=== PATIENT | female | born 1985 | race Caucasian/White ===

== ENCOUNTER → 2022-05-30 12:54 | Outpatient (CLI) | payer MEDICAID, SELFPAY ==
--- NOTE | 2022-05-30 12:55 | US_ITS ---
FINAL REPORT TECHNIQUE: Sonographic images of the pelvis were obtained. CLINICAL HISTORY: for dates COMPARISON: None FINDINGS: A gestational sac is present in the uterus. Mean sac diameter is 9 mm corresponding with 5 weeks 4 days gestational age. Yolk sac measures 3 mm. No pole is identified. No heartbeat is identified. There is a left ovarian cyst measuring 2.5 cm. There is a 1.3 cm right ovarian cyst. There is normal blood flow to the ovaries. There is a small amount of free fluid. IMPRESSION: Gestational sac in the uterus measuring approximately 5 weeks 4 days. No pole identified. Recommend follow-up ultrasound. Bilateral ovarian cysts. Moderate amount of free fluid, nonspecific. Reviewed, Interpreted and Dictated by Gerard Cash III, MD Transcribed by Jeimy Whitmore Authenticated and [facility]
[2022-05-30 15:16] LABS: HCG,Quantitative 9161 mIU/ml (0-5.42)
[2022-06-01 08:20] LABS: Progesterone 21.6 ng/mL (.)
== END ==
PROVIDERS: PCP Emergency Medicine; Visit Provider Nurse Practitioner Obstetrics & Gynecology
DX: Z34.90 Encounter for supervision of normal pregnancy, unspecified, unspecified trimester (principal); N92.6 Irregular menstruation, unspecified
CPT/HCPCS: 36415; 76801; 84144; 84702

== ENCOUNTER → 2022-06-02 08:14 | Outpatient (CLI) | payer MEDICAID, SELFPAY ==
[2022-06-02 10:43] LABS: HCG,Quantitative 16490 mIU/ml (0-5.42)
== END ==
PROVIDERS: PCP Emergency Medicine; Visit Provider Nurse Practitioner Obstetrics & Gynecology
DX: N92.6 Irregular menstruation, unspecified (principal); Z32.00 Encounter for pregnancy test, result unknown
CPT/HCPCS: 36415; 84702

== ENCOUNTER → 2022-06-19 14:19 | Outpatient (CLI) | payer MEDICAID, SELFPAY ==
[2022-06-19 15:37] LABS: Basophils # 0.1 K/mm3 (0-0.2); Basophils % 0.6 % (0.1-2.0); Eosinophils # 0.1 K/mm3 (0.0-0.4); Eosinophils % 0.9 % (0.1-12.0); Hematocrit 43.4 % (37.0-47.0); Hemoglobin 13.7 g/dL (12.2-16.2); Lymphocytes # 1.9 K/mm3 (0.7-4.5); Lymphocytes % 20.7 % (10-50); Mean Corpuscular HGB Conc 31.6 g/dL (31.8-35.4); Mean Corpuscular Hemoglobin 31.5 pg (27.0-31.2); Mean Corpuscular Volume 99.9 fl (81-99); Mean Platelet Volume 7.8 fl (7.4-10.4); Monocytes # 0.4 K/mm3 (0.1-1.0); Monocytes % 4.8 % (1.7-9.3); Neutrophils # 6.8 K/mm3 (1.8-7.8); Platelet Count 328 K/mm3 (142-424); Red Blood Count 4.35 M/mm3 (4.20-5.40); White Blood Count 9.3 K/mm3 (4.8-10.8)
[2022-06-21 07:22] LABS: Rubella Antibodies, IgG 7.79 index (Immune >0.99)
[2022-06-21 15:01] LABS: Rapid Plasma Reagin Ab Titer Non Reactive (NonRea<1:1)
[2022-06-25 03:56] LABS: HIV Screen 4th Generation wRfx NON REACTIVE; Hepatitis B Surface Antigen NEGATIVE; Hepatitis C Antibody NON REACTIVE
== END ==
PROVIDERS: PCP Emergency Medicine; Visit Provider Nurse Practitioner Obstetrics & Gynecology
DX: Z34.90 Encounter for supervision of normal pregnancy, unspecified, unspecified trimester (principal)
CPT/HCPCS: 36415; 85025; 86593; 86703; 86762; 86850; 87340; 87380; G0432

== ENCOUNTER → 2022-09-24 16:41 | Outpatient (CLI) | payer MEDICAID, SELFPAY ==
[2022-09-24 17:26] LABS: Collection Time,Urine 24 hours; Total Volume,Urine 1200 mL (600-1600)
[2022-09-24 17:28] LABS: Patient Weight,Urine 185 lbs
[2022-09-24 18:18] LABS: Creatinine 24 Hour,Urine 1224 mg/24hr (630-2500); Creatinine,Urine Random 102 mg/dL (Not Estab.); Total Protein 24 Hour,Urine 120 mg/24 hr (40-90)
== END ==
PROVIDERS: PCP Emergency Medicine; Visit Provider Nurse Practitioner Obstetrics & Gynecology
DX: I10 Essential (primary) hypertension (principal)
CPT/HCPCS: 82575; 84155

== ENCOUNTER 2022-10-22 07:46 | Outpatient (CLI) | payer MEDICAID, SELFPAY ==
[2022-10-22 08:19] LABS: Basophils % 0.5 % (0.1-2.0); Eosinophils # 0.2 K/mm3 (0.0-0.4); Eosinophils % 2.8 % (0.1-12.0); Hematocrit 30.5 % (37.0-47.0); Hemoglobin 9.8 g/dL (12.2-16.2); Lymphocytes # 1.4 K/mm3 (0.7-4.5); Lymphocytes % 21.7 % (10-50); Mean Corpuscular HGB Conc 32.1 g/dL (31.8-35.4); Mean Corpuscular Hemoglobin 31.1 pg (27.0-31.2); Mean Corpuscular Volume 96.8 fl (81-99); Mean Platelet Volume 7.7 fl (7.4-10.4); Monocytes # 0.3 K/mm3 (0.1-1.0); Monocytes % 5.1 % (1.7-9.3); Neutrophils # 4.4 K/mm3 (1.8-7.8); Neutrophils % 69.9 % (37.0-80.0); Platelet Count 229 K/mm3 (142-424); Red Blood Count 3.15 M/mm3 (4.20-5.40); Red Cell Distribution Width 12.6 % (11.5-17.5); White Blood Count 6.2 K/mm3 (4.8-10.8)
[2022-10-22 08:36] LABS: Glucose,Fasting 72 mg/dl (74-100)
[2022-10-22 10:30] LABS: Glucose 1 Hour 97 mg/dL (74-100)
[2022-10-22 11:45] VITALS: BP 146/76; PULSE 84; RESP 18; O2SAT 99
== END 2022-10-22 11:50 | disposition home or self-care (01) ==
PROVIDERS: PCP Emergency Medicine; Visit Provider Nurse Practitioner Obstetrics & Gynecology
DX: O26.892 Other specified pregnancy related conditions, second trimester (principal); Z67.91 Unspecified blood type, Rh negative; Z3A.26 26 weeks gestation of pregnancy
CPT/HCPCS: 36415; 82951; 85025; 96372; J2790

== ENCOUNTER → 2022-12-16 09:45 | Outpatient (CLI) | payer MEDICAID, SELFPAY ==
--- NOTE | 2022-12-16 09:45 | US_ITS ---
PROCEDURE: US OB BIOPHYSICAL PROFILE CLINICAL INDICATION: chronic hypertension COMPARISON: FINDINGS: Transabdominal sonographic images of the uterus were obtained. From her established due date she is 34weeks 1day. The following parameters are obtained: Viable fetus in the cephalic presentation with an anterior placenta grade 2. Cervix measures 2.8 cm. heart rate: 149bpm bpm. Amniotic fluid index: 13.15cm Qualitative AFV: 2 breathing movements: 2 Gross body movements: 2 Tone: 2 Biophysical profile score: 8 No obvious anomalies evident.Kidneys, bladder, stomach, profile, four-chamber view, LVOT, three-vessel cord appear normal. IMPRESSION: 1. Viable fetus in the cephalic presentation with an anterior placenta grade 2. 2. The fluid is within normal limits with an amniotic fluid index of 13.15 cm. 3. Biophysical profile /8 with good breathing movement seen. Dictated by: Chema Fernándze MD 12/17/2022 09:52 Chema Fernández MD in OV 12/17/2022 09:52
== END ==
PROVIDERS: PCP Emergency Medicine; Visit Provider Obstetrics & Gynecology
DX: O10.913 Unspecified pre-existing hypertension complicating pregnancy, third trimester (principal); Z3A.34 34 weeks gestation of pregnancy
CPT/HCPCS: 76819

== ENCOUNTER 2022-12-19 13:50 | Outpatient (CLI) | payer MEDICAID, SELFPAY ==
[2022-12-19 14:06] VITALS: BP 129/78; PULSE 75; RESP 18; TEMP 36.7; O2SAT 99; BMI 31.9
== END 2022-12-19 14:25 | disposition home or self-care (01) ==
LOC: OBOUT 13:52 → OB 13:54
PROVIDERS: PCP Emergency Medicine; Visit Provider Nurse Practitioner Obstetrics & Gynecology
DX: Z34.93 Encounter for supervision of normal pregnancy, unspecified, third trimester (principal); Z3A.34 34 weeks gestation of pregnancy
CPT/HCPCS: 59025; G0463

== ENCOUNTER 2022-12-23 14:11 | Outpatient (CLI) | payer OTHER, SELFPAY ==
[2022-12-23 14:35] VITALS: BP 147/83; PULSE 73; RESP 18; O2SAT 99
== END 2022-12-23 14:50 | disposition home or self-care (01) ==
LOC: INF 14:12
PROVIDERS: PCP Emergency Medicine; Visit Provider Obstetrics & Gynecology
DX: O10.919 Unspecified pre-existing hypertension complicating pregnancy, unspecified trimester (principal); E86.0 Dehydration
CPT/HCPCS: 96372

== ENCOUNTER 2022-12-24 13:54 | Outpatient (CLI) | payer OTHER, SELFPAY ==
[2022-12-24 14:31] VITALS: BP 143/71; PULSE 76; RESP 18; O2SAT 99
== END 2022-12-24 14:38 | disposition home or self-care (01) ==
LOC: INF 13:55
PROVIDERS: PCP Emergency Medicine; Visit Provider Obstetrics & Gynecology
DX: O10.919 Unspecified pre-existing hypertension complicating pregnancy, unspecified trimester (principal); Z3A.35 35 weeks gestation of pregnancy
CPT/HCPCS: 96372

== ENCOUNTER → 2022-12-26 16:03 | Outpatient (CLI) | payer OTHER, SELFPAY ==
[2022-12-26 16:51] LABS: Basophils % 0.2 % (0.1-2.0); Eosinophils % 0.3 % (0.1-12.0); Hematocrit 33.8 % (37.0-47.0); Lymphocytes # 1.6 K/mm3 (0.7-4.5); Lymphocytes % 16.4 % (10-50); Mean Corpuscular HGB Conc 32.5 g/dL (31.8-35.4); Mean Corpuscular Volume 95.4 fl (81-99); Mean Platelet Volume 7.9 fl (7.4-10.4); Monocytes # 0.6 K/mm3 (0.1-1.0); Monocytes % 5.9 % (1.7-9.3); Neutrophils # 7.7 K/mm3 (1.8-7.8); Neutrophils % 77.2 % (37.0-80.0); Platelet Count 271 K/mm3 (142-424); Red Blood Count 3.55 M/mm3 (4.20-5.40); Red Cell Distribution Width 12.9 % (11.5-17.5)
[2022-12-26 17:12] LABS: Total Volume,Urine 950 mL (600-1600)
[2022-12-26 17:45] LABS: Alanine Aminotransferase 22 U/L (12-78); Albumin Level 3.8 g/dl (3.5-5.0); Albumin/Globulin Ratio 1.3 (1.1-1.8); Alkaline Phosphatase 127 U/L (38-126); Anion Gap 9.4 mEq/L (5-15); Aspartate Amino Transferase 27 U/L (14-36); Bilirubin,Total 0.2 mg/dl (0.2-1.3); Blood Urea Nitrogen 17 mg/dl (7-17); Calcium 8.9 mg/dl (8.4-10.2); Carbon Dioxide 26 mmol/L (22.0-30.0); Chloride 105 mmol/L (98-107); Estimated Glomerular Filt Rate 94 ml/min (>60); GFR (African American) 113 ML/MIN (>60); Globulin 2.9 g/dL (1.3-3.2); Glucose 83 mg/dl (74-100); Lactate Dehydrogenase 233 U/L (313-618); Potassium 4.4 mmoL/L (3.5-5.1); Sodium 136 mmol/L (136-145); Total Protein,Serum 6.7 g/dl (6.3-8.2); Uric Acid 4.8 mg/dl (2.5-6.2)
[2022-12-26 18:15] LABS: Total Protein 24 Hour,Urine 162 mg/24 hr (40-90)
== END ==
PROVIDERS: PCP Emergency Medicine; Visit Provider Obstetrics & Gynecology
DX: O10.919 Unspecified pre-existing hypertension complicating pregnancy, unspecified trimester (principal); Z3A.35 35 weeks gestation of pregnancy
CPT/HCPCS: 36415; 80053; 83615; 84155; 84550; 85025

== ENCOUNTER → 2022-12-30 07:29 | Outpatient (CLI) | payer OTHER, MEDICAID, SELFPAY | PROVIDERS: PCP Emergency Medicine; Visit Provider Obstetrics & Gynecology | DX: Z34.90 Encounter for supervision of normal pregnancy, unspecified, unspecified trimester (principal) ==

== ENCOUNTER → 2023-01-01 10:29 | Outpatient (CLI) | payer OTHER, SELFPAY ==
--- NOTE | 2023-01-01 10:35 | US_ITS ---
PROCEDURE: US OB BIOPHYSICAL PROFILE CLINICAL INDICATION: FELA,Chronic hypertension, IUGR COMPARISON: FINDINGS: Transabdominal sonographic images of the uterus were obtained. From her established due date she is 36weeks 3days. The following parameters are obtained: Viable fetus in the cephalic presentation with an anterior placenta grade 2 Average ultrasound age is 35weeks 1day. Estimated due date by ultrasound is 02/04/2023. Estimated weight is 5lb 2oz, 2352 grams. Cervix measures 2.8 cm in length. heart rate: 138bpm bpm. BPD: 37weeks 6days OFD: 37weeks 6days HC: 37 weeks 4 days AC: 33 weeks 6 FL: 33 weeks 2 days HC/AC: 1.11 Cephalic index: 0.77 FL/BPD: 0.73 FL/AC: 0.22 7 percentile Amniotic fluid index: 10.46cm Qualitative AFV: 2 breathing movements: 2 Gross body movements: 2 Tone: 2 Biophysical profile score: 8 No obvious anomalies evident.Kidneys, profile, nasion, four-chamber heart, three-vessel cord appear normal. IMPRESSION: 1. Viable fetus in the cephalic presentation with an anterior placenta grade 2. 2. The fluid is within normal limits with an amniotic fluid index of 10.5 cm. 3. The abdominal circumference is over 2 weeks behind. growth is 7th percentile. 4. Biophysical profile is 8/8 with good breathing movement and movement seen. Dictated by: Chema Fernández MD 01/01/2023 14:47 Chema Fernández MD in OV 01/01/2023 14:47
== END ==
PROVIDERS: Visit Provider Obstetrics & Gynecology
DX: O36.5130 Maternal care for known or suspected placental insufficiency, third trimester, not applicable or unspecified (principal); O10.919 Unspecified pre-existing hypertension complicating pregnancy, unspecified trimester; O28.8 Other abnormal findings on antenatal screening of mother; Z3A.36 36 weeks gestation of pregnancy
CPT/HCPCS: 59025; 76816; 76819; 80053; 80076; 80305; 81001; 82043; 82570; 84550; 85025; 85378; 85384; 85610; 85730; 86403; G0463

== ENCOUNTER 2023-01-01 14:19 | Outpatient (CLI) | payer OTHER, MEDICAID, SELFPAY ==
[2023-01-01 14:30] VITALS: BMI 25.5; BMI 30.7
[2023-01-01 14:35] VITALS: BP 143/78; PULSE 72; RESP 18; TEMP 36.7; O2SAT 99
[2023-01-01 14:50] VITALS: BP 151/86
[2023-01-01 15:04] LABS: Microscopic, Urine URINE MICROSCOPIC (MICROSCOPIC)
[2023-01-01 15:10] VITALS: BP 131/69; PULSE 65
[2023-01-01 15:11] LABS: Appearance,Urine CLEAR (Clear); Bilirubin,Urine Negative (Negative); Blood, Urine TRACE-I (Negative); Color,Urine YELLOW (Yellow); Glucose,Urine (UA) Negative (Negative); Ketones,Urine Negative (Negative); Leukocyte Esterase,Urine Negative (Negative); Nitrate,Urine Negative (Negative); Protein,Urine Negative (Negative); Specific Gravity, Urine 1.025 (1.005-1.030); Urobilinogen,Urine 0.2 EU/dl (0.2)
[2023-01-01 15:13] LABS: Alanine Aminotransferase 25 U/L (12-78); Albumin Level 3.7 g/dl (3.5-5.0); Albumin/Globulin Ratio 1.2 (1.1-1.8); Alkaline Phosphatase 130 U/L (38-126); Anion Gap 8.8 mEq/L (5-15); Aspartate Amino Transferase 31 U/L (14-36); Bilirubin,Direct 0.1 mg/dl (0.0-0.4); Bilirubin,Indirect 0.1 mg/dL (0.0-0.9); Bilirubin,Total 0.2 mg/dl (0.2-1.3); Bilirubin,Unconjugated 0.1 mg/dL (0.0-1.1); Blood Urea Nitrogen 13 mg/dl (7-17); Carbon Dioxide 24 mmol/L (22.0-30.0); Chloride 104 mmol/L (98-107); Creatinine Clearance Estimated 140 mL/min (50-200); Estimated Glomerular Filt Rate 94 ml/min (>60); GFR (African American) 113 ML/MIN (>60); Globulin 3.1 g/dL (1.3-3.2); Glucose 85 mg/dl (74-100); Potassium 3.8 mmoL/L (3.5-5.1); Sodium 133 mmol/L (136-145); Total Protein,Serum 6.8 g/dl (6.3-8.2)
[2023-01-01 15:41] VITALS: BP 138/91; PULSE 74
[2023-01-01 15:44] LABS: RBC,Urine Occasional #/hpf (0-3); Squamous Epithelial Cell,Urine Occasional #/hpf (0-5)
[2023-01-01 16:10] LABS: Basophils % 0.4 % (0.1-2.0); Eosinophils # 0.1 K/mm3 (0.0-0.4); Eosinophils % 0.7 % (0.1-12.0); Hematocrit 32.3 % (37.0-47.0); Hemoglobin 11.3 g/dL (12.2-16.2); Lymphocytes # 1.6 K/mm3 (0.7-4.5); Lymphocytes % 20.9 % (10-50); Mean Corpuscular HGB Conc 35.1 g/dL (31.8-35.4); Mean Corpuscular Hemoglobin 32.9 pg (27.0-31.2); Mean Corpuscular Volume 93.9 fl (81-99); Mean Platelet Volume 7.6 fl (7.4-10.4); Monocytes # 0.4 K/mm3 (0.1-1.0); Monocytes % 5.1 % (1.7-9.3); Neutrophils # 5.7 K/mm3 (1.8-7.8); Platelet Count 239 K/mm3 (142-424); Red Blood Count 3.44 M/mm3 (4.20-5.40); Red Cell Distribution Width 12.9 % (11.5-17.5); White Blood Count 7.7 K/mm3 (4.8-10.8)
[2023-01-01 16:14] LABS: Uric Acid 5.2 mg/dl (2.5-6.2)
[2023-01-01 16:19] LABS: Activated Partial Thrombo Time 27.7 seconds (22.8-30.6); D-Dimer 0.95 ug/mL (0.0-0.5); Fibrinogen 464 mg/dL (229.9-363.5); Prothrombin Time 9.8 seconds (10.1-12.5)
[2023-01-01 18:12] LABS: Creatinine,Urine Random 85 mg/dL (Not Estab.)
[2023-01-01 18:17] LABS: Amphetamine/Metha Screen,Urine Negative ng/ml (<1000)
[2023-01-01 18:18] LABS: Barbiturates Screen,Urine Negative ng/ml (<200); Benzodiazepines Screen,Urine Negative ng/ml (<200)
[2023-01-01 18:19] LABS: Cannabinoid Screen,Urine Negative ng/ml (<50)
[2023-01-01 18:20] LABS: Cocaine Screen,Urine Negative ng/ml (<300); Methadone Screen,Urine Negative ng/ml (<300)
[2023-01-01 18:21] LABS: Opiate Screen,Urine Negative ng/ml (<300)
[2023-01-01 18:22] LABS: Phencyclidine Screen,Urine Negative ng/ml (<25)
== END 2023-01-01 16:40 | disposition home or self-care (01) ==
LOC: LAB 14:24 → OB 14:26
PROVIDERS: Obstetrics & Gynecology; PCP Emergency Medicine; Visit Provider Obstetrics & Gynecology
DX: O26.893 Other specified pregnancy related conditions, third trimester (principal); Z3A.37 37 weeks gestation of pregnancy
CPT/HCPCS: 59025; 80053; 80076; 80305; 81001; 82043; 82570; 84550; 85025; 85378; 85384; 85610; 85730; 86403; G0463

== ENCOUNTER 2023-01-06 05:05 | Inpatient (IN) | payer OTHER, SELFPAY ==
[2023-01-06] VITALS (7 sets, daily range): BP systolic 154–173; BP diastolic 82–100; PULSE 60–88; RESP 15–19; TEMP 36.4–36.6; O2SAT 97–99; BMI 30.5
[2023-01-06 05:48] LABS: Microscopic, Urine URINE MICROSCOPIC (MICROSCOPIC)
[2023-01-06 05:51] LABS: Appearance,Urine CLEAR (Clear); Bilirubin,Urine Negative (Negative); Blood, Urine TRACE-I (Negative); Color,Urine YELLOW (Yellow); Glucose,Urine (UA) Negative (Negative); Ketones,Urine Negative (Negative); Leukocyte Esterase,Urine Negative (Negative); Nitrate,Urine Negative (Negative); Protein,Urine TRACE (Negative); Specific Gravity, Urine >= 1.030 (1.005-1.030); Urobilinogen,Urine 0.2 EU/dl (0.2)
[2023-01-06 05:52] LABS: WBC,Urine Occasional #/hpf (0-3)
[2023-01-06 05:57] LABS: Basophils % 0.4 % (0.1-2.0); Chloride 106 mmol/L (98-107); Eosinophils # 0.1 K/mm3 (0.0-0.4); Eosinophils % 0.6 % (0.1-12.0); Hematocrit 32.7 % (37.0-47.0); Hemoglobin 11.6 g/dL (12.2-16.2); Lymphocytes # 1.6 K/mm3 (0.7-4.5); Mean Corpuscular HGB Conc 35.4 g/dL (31.8-35.4); Mean Corpuscular Hemoglobin 32.8 pg (27.0-31.2); Mean Corpuscular Volume 92.6 fl (81-99); Monocytes # 0.5 K/mm3 (0.1-1.0); Monocytes % 6.5 % (1.7-9.3); Neutrophils # 5.7 K/mm3 (1.8-7.8); Neutrophils % 72.4 % (37.0-80.0); Platelet Count 222 K/mm3 (142-424); Potassium 4.1 mmoL/L (3.5-5.1); Red Blood Count 3.53 M/mm3 (4.20-5.40); Red Cell Distribution Width 13.1 % (11.5-17.5); Sodium 136 mmol/L (136-145); White Blood Count 7.9 K/mm3 (4.8-10.8)
[2023-01-06 06:00] LABS: Alanine Aminotransferase 26 U/L (12-78); Albumin Level 3.6 g/dl (3.5-5.0); Albumin/Globulin Ratio 1.2 (1.1-1.8); Alkaline Phosphatase 158 U/L (38-126); Anion Gap 11.1 mEq/L (5-15); Aspartate Amino Transferase 29 U/L (14-36); Blood Urea Nitrogen 17 mg/dl (7-17); Carbon Dioxide 23 mmol/L (22.0-30.0); Creatinine Clearance Estimated 139 mL/min (50-200); Estimated Glomerular Filt Rate 94 ml/min (>60); GFR (African American) 113 ML/MIN (>60); Globulin 3.1 g/dL (1.3-3.2); Glucose 87 mg/dl (74-100); Total Protein,Serum 6.7 g/dl (6.3-8.2)
[2023-01-06 06:01] LABS: Bilirubin,Total 0.1 mg/dl (0.2-1.3)
[2023-01-06 06:06] LABS: Amphetamine/Metha Screen,Urine Negative ng/ml (<1000); Barbiturates Screen,Urine Negative ng/ml (<200)
[2023-01-06 06:07] LABS: Cannabinoid Screen,Urine Negative ng/ml (<50)
[2023-01-06 06:08] LABS: Benzodiazepines Screen,Urine Negative ng/ml (<200); Methadone Screen,Urine Negative ng/ml (<300)
[2023-01-06 06:09] LABS: Cocaine Screen,Urine Negative ng/ml (<300)
[2023-01-06 06:10] LABS: Opiate Screen,Urine Negative ng/ml (<300); Phencyclidine Screen,Urine Negative ng/ml (<25)
--- NOTE | 2023-01-06 07:20 | EXP.ANES.CKL ---
[facility] Disclaimer: The information contained in this section may have been updated after the patient was seen, as this information can be updated by other users. Medical History Hypertension Hypothyroid Hypothyroidism affecting complicated by Suboxone maintenance, antepartum Surgical History Hx of section Hx of cholecystectomy Hx of tonsillectomy Family History Sister Cancer Breast Social History (Updated 01/06/23 @ 05:59 by Jacinta Winslow RN) Smoking Status: Current every day smoker tobacco type: cigarettes packs per day: 1 alcohol intake: never substance use type: denies use and former substance user current occupational status: employed Travel in the last 8 weeks: None do you feel safe at home: Yes victim of physical abuse: No victim of emotional abuse: No victim of sexual abuse: No [facility] Anesthesia Checklist Patient Identification Patient Identification: Verbal (Name & ) Structural Data Admitted From: Inpatient Planned Operative Procedure/s: c/section Consent for Planned Operative Procedure(s) Verified: Yes NPO Status Verified Time NPO: 00:00 Airway Assessment Mallampati Score:: Class II C-Spine Mobility Assessed: Yes TMJ Mobility Assessed: Yes Dentition: Good Dentition Neurological Assessment Level of Consciousness: Awake, Alert and Appropriate Anesthesia Plan Anesthesia Risk discussed: Yes Anesthesia Plan: Verified ASA Class: II Anesthesia Type: Spinal Preoperative Comments Pre-Operative Comments: exp tap block to pt, pt agreed to proceed
[2023-01-06 08:12] LABS: Cord Blood PH 7.31 (7.35-7.45)
--- NOTE | 2023-01-06 08:59 | EXP.HP ---
History of Present Illness *Admission Date: 01/06/23 *Reason for visit:: Repeat delivery *History of present illness: Farrukh Chatman is a 37-year-old who presents for repeat delivery at 37 weeks and 1 days gestation. Her has been complicated by chronic hypertension, a history of severe preeclampsia, hypothyroidism, Subutex use, advanced maternal age, and Rh-. On presentation she endorsed good movement, denies any contractions, vaginal bleeding, or leakage of fluid. She desires a Mirena IUD and declines a salpingectomy today. Over the last month her blood pressure has been continuing to increase despite being on 400 3 times daily of labetalol. She has been sent to labor and delivery both here and at [facility] multiple times for preeclampsia evaluation. Patient had a course of betamethasone at 35 weeks gestation and into the patient of early delivery secondary to preeclampsia. Growth ultrasound on 01/01: 7 percentile, FELA: 10 cm, BPP: 8 out of 8 A-, antibody positive, antibody identification pending. RPR negative, hepatitis B negative, hepatitis C negative, HIV negative, rubella immune 1 hour GTT: 97 GBS negative PFSH PFS Disclaimer: The information contained in this section may have been updated after the patient was seen, as this information can be updated by other users. Medical History Hypertension Hypothyroid Hypothyroidism affecting complicated by Suboxone maintenance, antepartum Surgical History Hx of section Hx of cholecystectomy Hx of tonsillectomy Family History Sister Cancer Social History Smoking Status: Current every day smoker tobacco type: cigarettes packs per day: 1 alcohol intake: never substance use type: denies use and former substance user current occupational status: employed Travel in the last 8 weeks: None do you feel safe at home: Yes victim of physical abuse: No victim of emotional abuse: No victim of sexual abuse: No Review of Systems Review of Systems Review of systems (narrative): Review of Systems Constitutional: Denies fever, chills, and sweats Eyes: Denies vision change/ pain Respiratory: Denies cough and shortness of breath Cardiovascular: Denies chest pain and lightheadedness Gastrointestinal: Denies abdominal pain, denies contractions. Denies nausea, vomiting. Genitourinary: Denies dysuria and incontinence Musculoskeletal: Denies shoulder pain and back pain Neurological: Denies change in speech or headaches Meds Home Medications and Allergies Home Medications Medication Instructions Recorded Confirmed Type buprenorphine HCl 8 mg sublingual 8 mg sublingual DAILY 07/17/22 01/06/23 History tablet magnesium 250 mg tablet 250 mg PO DAILY Supplement 07/31/22 01/06/23 History sennosides 8.6 mg tablet (Senokot) 8.6 mg PO BID Constipation 10/09/22 01/06/23 History labetalol 200 mg tablet 400 mg PO BID High Blood Pressure 12/09/22 01/06/23 History aspirin 81 mg tablet,delayed 81 mg PO DAILY Heart Health 01/06/23 01/06/23 History release (Adult Low Dose Aspirin) ferrous sulfate 325 mg (65 mg 325 mg PO DAILY Supplement 01/06/23 01/06/23 History iron) tablet folic acid-vit B6-vit B12 2.2 1 tab PO DAILY Supplement 01/06/23 01/06/23 History mg-25 mg-0.5 mg tablet levothyroxine 175 mcg tablet 175 mcg PO DAILY 01/06/23 01/06/23 History vit no.95-ferrous 1 tab PO DAILY Supplement 01/06/23 01/06/23 History fumarate 28 mg-folic acid 800 mcg tablet () New Prescriptions to Start Prescriptions: Allergies Allergy/AdvReac Type Severity Reaction Status Date / Time Penicillins Allergy Severe Respiratory Verified 01/06/23 05:58 Distress Exam Data for L
--- NOTE | 2023-01-06 09:10 | EXP.DN ---
Delivery Note Delivery Date:: 01/06/23 Delivery Time:: 08:04 Anesthesia Type: Spinal Was labor medically induced?: No Induction method: none Gestational age (weeks): 37 delivered prior to 39 weeks?: Yes Infant Gender: Male at 1 minute: 8 at 5 minutes: 9 Suction Catheter Type: Desireuer Delivery Procedure:: Preoperative diagnosis: 1. 37 weeks 1days gestation, [place] 2. Chronic Hypertension 3. Suboxone maintenance throughout 4. Intrauterine Growth Restriction 5. Advanced Maternal Age 6. Previous Delivery, desires repeat 7. Hx of severe preeclampsia 8. Hypothyroidism 9. Vertex presentation 10. GBS negative 11. Rh negative Postoperative diagnosis: 1. 37 weeks 1days gestation, [place] 2. Chronic Hypertension 3. Suboxone maintenance throughout 4. Intrauterine Growth Restriction 5. Advanced Maternal Age 6. Previous Delivery, desires repeat 7. Hx of severe preeclampsia 8. Hypothyroidism 9. Vertex presentation 10. GBS negative 11. Rh negative Findings: 1. Live viable Male . Weight: 5pounds 7ounces. Apgars 8 and 9 at 1 and 5 minutes respectively 2. Normal-appearing fallopian tubes and ovaries bilaterally 3. There was significant scarring of the subcutaneous tissue and fascia. The abdominal cavity was fairly free of adhesions. Medications: 1. Gentamicin and clindamycin IV 2. 400 mg labetalol PO 3 times daily Surgeon Maya Redding DO Process Coordinator Chema Fernández MD EBL: 500mL Complications: None Specimen: Cord blood, cord gases, placenta Procedure: Repeat low transverse section Ms. Farrukh Chatman a 37-year-old female at 37w1d gestation who presented this morning for scheduled repeat delivery secondary to poorly controlled chronic hypertension and IUGR. The patient was taken back to the operating room where adequate spinal anesthesia was obtained. Pneumatic compression stockings applied to lower extremities. Urinary catheter was placed and found to be draining clear urine. The patient was prepped and draped in sterile fashion. Anesthesia was tested and and found to be adequate. A Pfannenstiel skin incision was made with the scalpel. The incision was taken down to the fascia sharply. The fascia was knicked in the midline and extended laterally with Vasquez's. The superior aspect of the fascia was grasped with Donna clamps and the rectus muscle was taken down bluntly and sharply with Vasquez scissors. The rectus muscles were in the midline, peritoneum was identified and entered bluntly. Farrukh O retractor was placed. Lower uterine segment was identified and the bladder was noted to be adherent. A bladder flap was created and the bladder was noted to be out of the operative field. The lower uterine segment was sharply incised, entered bluntly, and extended in a superior and inferior fashion by blunt separation. Membranes were ruptured revealing clear fluid. The fetus was in cephalic presentation. The head was carefully elevated out of the pelvis. Fundal pressure was applied when head was brought into incision. The infants head was delivered without difficulty. The shoulder and body followed without complication. The mouth and nose were suctioned with a bulb. The umbilical cord was clamped and cut after 60 seconds. was taken to warmer for evaluation by candle maker. Cord blood and cord gases were collected. The placenta was delivered via manual extraction and found to be normal and intact. 3 vessel cord was noted. Inside of the uterus was gently cleared of blood and clots with lap sponge. The hysterotomy was closed with 0 Vicryl in a running locked fashion. A second imbricating layer was placed with 0 Vicryl. The lower uterine segment was visualized and noted to be hemostatic. The ovaries and tubes were found to be normal. The posterior aspect of the uterus was cleared of blood clot with a damp lap sponge. Farrukh O retractor wa
--- NOTE | 2023-01-06 09:35 | SUR.OPER ---
0804- viable infant male born at this time 0813- spoke to RT Danica regarding cord gas, 7.31. Results relayed to MD Redding, NNO [id number]- report given to Zee Vázquez RN at this time
--- NOTE | 2023-01-06 09:39 | EXP.ANES.I ---
[facility] Anesthesia Record Part I Anesthesia Record I Intake, IV Amount: 1,600 Hydration: Adequate Estimated blood loss (mL): 500 Urine output (mL): 150 Blood Products used (#): none Blood Pressure: 173/100 SaO2: 98 Pulse Rate: 60 Airway Patency: Patent Respiratory Rate: 18 Temperature: 97.6 F Patient is:: Awake (Talking) and Stable Stable to PACU at:: 09:03
--- NOTE | 2023-01-06 12:38 | P.PNANES_ITS ---
[facility] Anesthesia Record Part II Anesthesia Record Part II Discharge Time: 09:28 Destination: Obstetric PACU nurse assessment reviewed?: Yes Patient Condition:: Good Anesthesia Complications:: None Swallowing reflex intact?: Yes Airway Patency: Patent Cyanosis?: No Blood Pressure: 154/98 SaO2: 98 Respiratory Rate: 16 Pulse Rate: 66 Temperature: 97.6 F Mental Status: Alert & Oriented Pain level:: 0 Nausea and/or vomitting:: None Intake, IV Amount: 1,600 Hydration: Adequate
[2023-01-06 17:02] LABS: Microscopic,Cath URINE MICROSCOPIC (MICROSCOPIC)
[2023-01-06 18:23] LABS: Appearance,Urine/Cath CLEAR (Clear); Bilirubin,Cath Negative (Negative); Blood, Urine/Cath Negative (Negative); Color,Urine/Cath YELLOW (Yellow); Glucose,Urine/Cath (UA) Negative (Negative); Ketones,Urine/Cath Negative (Negative); Leukocyte Esterase,Cath Negative (Negative); Nitrate,Cath Negative (Negative); Protein,Urine/Cath Negative (Negative); Urobilinogen,Cath 0.2 EU/dl (0.2)
[2023-01-07 06:34] LABS: Basophils % 0.1 % (0.1-2.0); Eosinophils # 0.1 K/mm3 (0.0-0.4); Eosinophils % 0.8 % (0.1-12.0); Hemoglobin 10.3 g/dL (12.2-16.2); Lymphocytes # 1.5 K/mm3 (0.7-4.5); Lymphocytes % 18.9 % (10-50); Mean Corpuscular HGB Conc 34.6 g/dL (31.8-35.4); Mean Corpuscular Hemoglobin 33.1 pg (27.0-31.2); Mean Corpuscular Volume 95.7 fl (81-99); Mean Platelet Volume 7.7 fl (7.4-10.4); Monocytes # 0.4 K/mm3 (0.1-1.0); Neutrophils # 5.8 K/mm3 (1.8-7.8); Neutrophils % 75.3 % (37.0-80.0); Platelet Count 186 K/mm3 (142-424); Red Blood Count 3.13 M/mm3 (4.20-5.40); Red Cell Distribution Width 13.1 % (11.5-17.5); White Blood Count 7.8 K/mm3 (4.8-10.8)
[2023-01-07 06:50] LABS: Hematocrit 29.9 % (37.0-47.0)
[2023-01-07 09:17] VITALS: BP 145/75; PULSE 66; RESP 20; TEMP 36.9; O2SAT 97
--- NOTE | 2023-01-07 09:37 | SW/DCPLANNER ---
Addendum entered by Zoraida Cullen 01/12/23 07:38: Infant cord screen is positive for Subutex at this time. Original Note: I received a referral on this patient regarding: former drug use and takes Subutex. Patient test positive for Subutex on the following dates: 06/19/22, 10/09/22, 12/09/22 and admission drug screens have not returned yet due to being a send out. Infant urine drug screen is negative/send out pending. Patient stated that she routinely has appointments (once a month) w/ her PCP Dr Radha Leach in [place]: she prescribes the Subutex. Patient has been taking Subutex for the past 10 years. Patient delivered infant male (Jaiden Case) on 01/06/23. Patient stated that infant's father (Declan Case 09/15/89) in involved. Patient, Declan, infant and two other children (Venkat Abdi 04/25/13 and Brea Abdi 11/28/14) will reside at [address] [place] [address] in [place] [id number]. Patient stated there has been past Social Service involvement about 10 years ago due to drug use w/ first child but case is closed and no involvement since. Per nursing ([place]) patient is appropriate and has been scoring around a 5 due to tremors and increased tone. Patient stated that she has the following items at home: crib, carseat, clothing, diapers and will be breast feeding. Patient is currently established w/ WIC. Patient stated that she will have transportation to all follow up appointments w/ Dr Murphy. Patient is expected to discharge home tomrrow 01/08/23 pending no setbacks. I will follow up w/ cord drug screen once resulted.
--- NOTE | 2023-01-07 18:38 | EXP.OB.SPCS ---
OB - PN: Subj Interval history: Ms. Farrukh Case is a 37yo POD#1 following RLTCS at 37wk. No complications during delivery.? Patient states that she is doing well today.?Reports her lochia is scant and her pain is much better controlled. She was having discomfort yesterday evening but is feeling better today. she has taken a shower and removed her dressing. She is breast feeding and supplementing. She is doing well with both. She is ambulating, voiding and tolerating a normal diet without difficulty or dysuria.? Denies chest pain shortness of breath or pain in her legs. No further complaints at this time. Patient comments: no complaints, pain well controlled, tolerating diet and flatus present [place] baby status: doing well, nursing well and bottle feeding well feeding status: breast and bottle feeding OB - PN: Obj Exam Vital signs: Temp Pulse Resp BP Pulse Ox O2 Del Method 98.4 F 66 20 145/75 H 97 Room Air 01/07/23 09:17 01/07/23 09:17 01/07/23 09:17 01/07/23 09:17 01/07/23 09:17 01/07/23 09:17 Narrative: General: patient is alert oriented in no acute distress and responds appropriately to questions. Appears to be in minimal pain. resting in bed and doing well HEENT: NCAT, EOMI, moist mucous membranes, neck supple with full ROM Cardiovascular: RRR +S1/S2, no murmurs or rubs Pulmonary: Clear to auscultation bilaterally, nonlabored breathing, symmetric chest rise Abdominal: Fundus below the umbilicus, firm, and tenderness appropriate for the period. Extremities: trace edema, no tenderness or cyanosis noted Skin: Normal turgor, intact, warm.? Negative for erythema, pallor, petechia, or lesions Neurologic: Negative for sensory or motor deficit Psychiatric: Normal affect, normal thought process, good judgment and insight, no depression or anxious mood appreciated. Incision site: Mildly tender.? No oozing, bleeding, erythema, drainage or signs of infection appreciated Urinary Catheter Management Cho: Cath placed during this visit: no OB - PN: Obj Data Labs 01/07/23 06:15 01/06/23 05:34 Labs: Laboratory Results - last 24 hr 01/06/23 07:35: Urine Color Yellow, Urine Appearance Clear, Urine pH 7.0, Ur Specific [place] 1.020, Urine Protein Negative, Urine Glucose (UA) Negative, Urine Ketones Negative, Urine Blood Negative, Urine Nitrate Negative, Urine Bilirubin Negative, Urine Urobilinogen 0.2, Ur Leukocyte Esterase Negative, Urine RBC None, Urine WBC None, Ur Squamous Epith Cells None, Urine Bacteria None 01/07/23 06:15: WBC 7.8, RBC 3.13 L, Hgb 10.3 L, Hct 29.9 L, MCV 95.7, MCH 33.1 H, MCHC 34.6, RDW 13.1, Plt Count 186, MPV 7.7, Neut % (Auto) 75.3, Lymph % (Auto) 18.9, [place] % (Auto) 5.0, Eos % (Auto) 0.8, Baso % (Auto) 0.1, Neut # (Auto) 5.8, Lymph # (Auto) 1.5, [place] # (Auto) 0.4, Eos # (Auto) 0.1, Baso # (Auto) 0.0, Screen Negative, Baby's Rh Status Positive, Rhogam Infusion Rhogam release OB - PN: A/P (1) Intrauterine growth restriction (IUGR) affecting care of mother, third trimester, single gestation: Status: Acute (2) Hypothyroidism affecting : Status: Acute (3) 37 weeks gestation of : Status: Acute (4) Chronic hypertension affecting : Status: Acute (5) Hypothyroid: Status: Acute (6) complicated by Suboxone maintenance, antepartum: Status: Acute (7) Hypertension: Status: Acute (8) Advanced maternal age (AMA) in : Status: Acute (9) Previous section complicating : Status: Acute (10) History of severe pre-eclampsia: Status: Acute Plan day: 1 Plan: routine postop care Comments: #POD#1 RLTCS -Doing well. VSS. Serial lochia and fundal checks. -A-, AntiD antibody. -Breast and Bottle feeding, male infant -Contraception: Mirena -Follow-up 2 weeks for routine visit and inc
[2023-01-07 20:00] VITALS: BP 136/71; PULSE 71; RESP 17; TEMP 36.9; O2SAT 99
[2023-01-08 08:12] VITALS: BP 147/76; PULSE 65; RESP 18; TEMP 36.8; O2SAT 98
--- NOTE | 2023-01-08 11:36 | EXP.DC.SUM ---
General Admission date:: 01/06/23 Discharge date: 01/08/23 HPI HPI HPI: Farrukh Chatman is a 37-year-old who presents for repeat delivery at 37 weeks and 1 days gestation. Her has been complicated by chronic hypertension, a history of severe preeclampsia, hypothyroidism, Subutex use, advanced maternal age, and Rh-. On presentation she endorsed good movement, denies any contractions, vaginal bleeding, or leakage of fluid. She desires a Mirena IUD and declines a salpingectomy today. Over the last month her blood pressure has been continuing to increase despite being on 400 3 times daily of labetalol. She has been sent to labor and delivery both here and at [facility] multiple times for preeclampsia evaluation. Patient had a course of betamethasone at 35 weeks gestation and into the patient of early delivery secondary to preeclampsia. Growth ultrasound on 01/01: 7 percentile, FELA: 10 cm, BPP: 8 out of 8 A-, antibody positive, antibody identification pending. RPR negative, hepatitis B negative, hepatitis C negative, HIV negative, rubella immune 1 hour GTT: 97 GBS negative Hospital Course Hospital Course Hospital Course: Farrukh Chatman is a 37-year-old postop day #2 following RLTCS at 37wk. No complications during delivery.? Patient states that she is doing well today.?Reports her lochia is scant and her pain is much better controlled. She denies any pain or discomfort. She is breast feeding and supplementing. She is doing well with both. She is ambulating, voiding and tolerating a normal diet without difficulty or dysuria.? Denies chest pain shortness of breath or pain in her legs. No further complaints at this time. Routine discharge instructions reviewed patient in detail and she voiced understanding. All questions were answered. Discussed preeclampsia precautions and reviewed reasons to return to labor and delivery. Patient voiced understanding. Exam Data for Last 24 hours Vital signs and Labs for Last 24 Hours: Temp Pulse Resp BP Pulse Ox O2 Del Method 98.3 F 65 18 147/76 H 98 Room Air 01/08/23 08:12 01/08/23 08:12 01/08/23 08:12 01/08/23 08:12 01/08/23 08:12 01/08/23 08:12 I & O for Last 24 hours: Intake & Output 01/05/23 01/06/23 01/07/23 01/08/23 23:59 23:59 23:59 23:59 Intake Total 3200 / 3200 Balance 3200 / 3200 Weight 178 lb Constitutional Constitutional: no acute distress *Routine HEENT Exam Head: Present normocephalic Eye: Present EOMI and PERRL ENT: Present mucous membranes moist *Routine Neck Exam Neck: Present supple; Absent lymphadenopathy *Routine Respiratory Exam Respiratory: Present CTA bilaterally *Routine Cardiovascular Exam Cardiovascular: Present RRR *Routine Abdominal Exam Abdominal: Present soft and normoactive bowel sounds; Absent tenderness *Routine Extremities Exam Extremities: Absent cyanosis, clubbing or edema *Routine Skin Exam Skin: Present warm; Absent rash Comments: Pfannenstiel incision well-healing with Steri-Strips in place. No signs of infection. No redness, warmth, or tenderness present. *Routine Neurological Exam Neurological: Present alert and oriented X3 DS: Diagnosis Discharge Diagnosis (1) Intrauterine growth restriction (IUGR) affecting care of mother, third trimester, single gestation: Status: Acute Code(s): O36.5930 - Maternal care for other known or suspected poor growth, third trimester, not applicable or unspecified (2) Hypothyroidism affecting : Status: Acute Code(s): O99.280 - Endocrine, nutritional and metabolic diseases complicating , unspecified trimester; E03.9 - Hypothyroidism, unspecified Qualifiers: Trimester: third trimester Qualified Code(s): O99.283 - Endocrine, nutritional and metabolic diseases complicating , third trimester; E03.9 - Hypothyroidism, unspecified (3) 37 weeks gestation of : Status:
[2023-01-12 13:20] LABS: Buprenorphine Positive (.); Norbuprenorphine Positive (.)
== END 2023-01-08 12:45 | disposition home or self-care (01) | DRG 787 ==
PROVIDERS: Nurse Practitioner Obstetrics & Gynecology; Admitting Provider Obstetrics & Gynecology; PCP Emergency Medicine; Visit Provider Obstetrics & Gynecology
PROC: (CPT 59514; principal; 2023-01-06 07:30)
DX: O34.211 Maternal care for low transverse scar from previous cesarean delivery (principal); F11.20 Opioid dependence, uncomplicated; O10.92 Unspecified pre-existing hypertension complicating childbirth; O99.324 Drug use complicating childbirth; N85.8 Other specified noninflammatory disorders of uterus; Z3A.37 37 weeks gestation of pregnancy; Z37.0 Single live birth; O36.5930 Maternal care for other known or suspected poor fetal growth, third trimester, not applicable or unspecified; O99.284 Endocrine, nutritional and metabolic diseases complicating childbirth; E03.9 Hypothyroidism, unspecified
CPT/HCPCS: 59514; 36415; 59025; 80053; 80305; 80348; 81001; 82800; 85025; 85461; 86850; 86870; 88307; 94761; G0283; J0571; J2405; J2790

== ENCOUNTER → 2023-02-17 14:54 | Outpatient (CLI) | payer OTHER, MEDICAID, SELFPAY ==
[2023-02-17 15:32] LABS: Basophils % 0.3 % (0.1-2.0); Eosinophils # 0.1 K/mm3 (0.0-0.4); Eosinophils % 1.8 % (0.1-12.0); Hematocrit 35.8 % (37.0-47.0); Hemoglobin 11.8 g/dL (12.2-16.2); Lymphocytes # 1.6 K/mm3 (0.7-4.5); Lymphocytes % 24.8 % (10-50); Mean Corpuscular HGB Conc 32.8 g/dL (31.8-35.4); Mean Corpuscular Hemoglobin 31.3 pg (27.0-31.2); Mean Corpuscular Volume 95.3 fl (81-99); Mean Platelet Volume 7.5 fl (7.4-10.4); Monocytes # 0.4 K/mm3 (0.1-1.0); Monocytes % 5.3 % (1.7-9.3); Neutrophils # 4.5 K/mm3 (1.8-7.8); Neutrophils % 67.8 % (37.0-80.0); Platelet Count 314 K/mm3 (142-424); Red Blood Count 3.76 M/mm3 (4.20-5.40); Red Cell Distribution Width 13.1 % (11.5-17.5); White Blood Count 6.6 K/mm3 (4.8-10.8)
[2023-02-17 16:13] LABS: Chloride 104 mmol/L (98-107); Sodium 138 mmol/L (136-145)
[2023-02-17 16:16] LABS: Alanine Aminotransferase 15 U/L (12-78); Albumin Level 4.1 g/dl (3.5-5.0); Albumin/Globulin Ratio 1.6 (1.1-1.8); Alkaline Phosphatase 69 U/L (38-126); Aspartate Amino Transferase 18 U/L (14-36); Bilirubin,Total 0.4 mg/dl (0.2-1.3); Blood Urea Nitrogen 10 mg/dl (7-17); Calcium 8.6 mg/dl (8.4-10.2); Carbon Dioxide 27 mmol/L (22.0-30.0); Estimated Glomerular Filt Rate 70 ml/min (>60); GFR (African American) 84 ML/MIN (>60); Globulin 2.6 g/dL (1.3-3.2); Glucose 92 mg/dl (74-100); Total Protein,Serum 6.7 g/dl (6.3-8.2)
== END ==
PROVIDERS: PCP Emergency Medicine; Visit Provider Obstetrics & Gynecology
DX: I10 Essential (primary) hypertension (principal); Z72.0 Tobacco use
CPT/HCPCS: 36415; 80053; 85025